=== PATIENT | male | born 1955 | race Caucasian/White ===

== ENCOUNTER 2025-09-19 11:19 | Outpatient (AMB) | payer MEDICARE, BC, SELFPAY ==
[2025-09-19 11:24] VITALS: BMI 31.0
--- NOTE | 2025-09-19 11:24 | A.PHYSOV ---
Vital Signs 09/19/25 11:24 Height 6 ft 1 in Weight 235 lb BMI 31.0 Intake Visit Reasons: back pain Intake Note: Patient is a69 year old here for back pain. 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 The patient was previously prescribed prednisone, which provided significant relief for approximately three weeks, but the pain has since returned. The pain is located in the low back, is worse on the right side, and radiates up to the right shoulder. The patient reports experiencing difficulty getting out of bed in the morning due to the pain. The patient denies any prior surgery on the low back. An x-ray was previously performed and only showed bone. The patient is currently using Tylenol for pain management. Patient reports 7/10 pain in the lower lumbar spine. He completed his 6 week physician directed home exercise plan focusing on his lumbar spine. He denies any major relief in supports recurrence of his symptoms. Pain Description - Location: The pain is located in the low back, worse on the right side. - Radiation: The pain radiates up to the right shoulder. - Activities of Daily Living: The patient reports difficulty getting out of bed in the morning. - Alleviating Factors: A previous course of prednisone provided significant relief for about three weeks. - Current Medications: The patient is using Tylenol. [facility] Social History Alcohol intake: current Alcohol intake frequency: other Comment: social Use of substances other than those prescribed or required for medical reasons: No Current occupational status: employed Review of Systems Narrative Review of Systems - Musculoskeletal: Reports low back pain that radiates to the right shoulder. - Neurological: Denies claustrophobia. Physical Exam Exam Exam: Physical Exam Lumbar Spine: Examination of his lumbar spine, there is no visible swelling or deformity. He is tender to the right lower lumbar facets. He is otherwise nontender. Full range of motion of the lumbar spine. He does have an increase in pain with facet loading. Special Tests: Lhermittes sign was negative Heel Toe walk is normal Left straight leg raise: Negative Right straight leg raise: Negative Special tests Efrain test is negative Ganslen's test is negative SI Joint compression test negative Wale test negative Piriformis stretch is negative Lower Extremities: Full range of motion bilateral lower extremities. No calf pain or edema. Neuro: Sensation: Intact to lower extremities bilaterally Strength L2 (Psoas): 5/5 on the left and 5/5 on the right. L3 (Quads): 5/5 on the left and 5/5 on the right. L4 (Ant tibialis): 5/5 on the left and 5/5 on the right. L5 (EHL) 5/5 on the left and 5/5 on the right. S1 (Gastroc): 5/5 on the left and 5/5 on the right. DTR L4: (Patellar) Left 2 Right 2 S1: (Achilles) Left 2 Right 2 Babinski Downgoing No pathologic clonus. No involuntary movement. Vital Signs: BMI result Body Mass Index 31.0 Assessment & Plan Assessment & Plan (1) Vertebrogenic low back pain: Code(s): M54.51 - Vertebrogenic low back pain Category: Medical (2) Lumbar spondylosis: Code(s): M47.816 - Spondylosis without myelopathy or radiculopathy, lumbar region Category: Medical Plan Pain Management - Analgesia: The patient is currently using Tylenol for pain. - Activities of Daily Living: The pain causes difficulty getting out of bed in the morning. - Affect: The patient expressed frustration about the recurring pain. - Prior Treatments: A course of prednisone provided significant relief for about three weeks before the pain returned. Plan Patient was informed and verbally consented to the use of an ambient scribe for clinic note documentation during this visit. 1. Low Back Pain The patient is a 69-year-old individual presenting with recurrent low back pain, worse on the right, with radiation to the right shoulder. A prior course of prednisone provided temporary relief for three weeks. An MRI of the lumbar spine is necessary to evaluate for underlying pathology such as disc issues, pinched nerves, or the severity of arthritis. Patient completed a 6 week physician directed home exercise plan focusing on his lumbar spine without relief of his symptoms. He finds that his symptoms limit his ability to perform his activities of daily living. An order for an MRI of the lumbar spine will be sent to [facility]. The office will obtain authorization from the patient's insurance. The patient will continue using Tylenol for pain. A follow-up visit will be scheduled after the MRI results are received to discuss the findings and further treatment options, which may include longer-acting steroid injections. Orders: Orders MR lumbar spine wo con Today M51.16 - Intervertebral disc disorders with radiculopathy, lumbar region Coding Level of Care Code Tele Est Pt Level 3 (55328) Diagnoses Vertebrogenic low back pain M54.51 Lumbar spondylosis M47.816
== END 2025-09-19 11:30 | disposition home or self-care (01) ==
LOC: HO.HPHYS 11:19
PROVIDERS: PCP Physician Assistant Medical; Visit Provider Physician Assistant
DX: M54.51 Vertebrogenic low back pain (principal); M47.816 Spondylosis without myelopathy or radiculopathy, lumbar region
CPT/HCPCS: 99213

== ENCOUNTER → 2025-09-19 11:19 | Outpatient (BNVA) | payer MEDICARE, BC, SELFPAY | PROVIDERS: PCP Physician Assistant Medical; Visit Provider Physician Assistant | DX: M54.51 Vertebrogenic low back pain (principal); M47.816 Spondylosis without myelopathy or radiculopathy, lumbar region | CPT/HCPCS: 99212 ==

== ENCOUNTER 2025-10-11 12:47 | Outpatient (AMB) | payer MEDICARE, BC, SELFPAY ==
--- OUTSIDE RECORDS SUMMARY | 2025-10-11 12:51 | XMS_ITS | Encounter Summary ---
Author Organization [facility] [place] [address] Care Team Providers Care Assistant Inventory Manager Name Role Phone Maximino Hewitt Primary Care Provider [phone] Encounter Details Date Type Department Care Team (Late st Contact Info) Description 08/14/2025 Results Follow-Up [facility] - [facility] [address] [facility] [address] [place] [address] Ernestina Poole PA [place] [phone] Social History Tobacco Use Types Packs/Day Years Used Date Smoking Tobacco: Former Cigarettes 2.5 10.8 0 1974 - 10/19/1985 Smokeless Tobacco: Never Alcohol Use Standard Drinks/Week Comments Yes 6 (1 standard drink = 0.6 oz pur e alcohol) Housing Instability Answer Date Recorde d Are you worried that in the next 2 months you may not have stable housing? No 10/02/2024 Food Access & Nutrition Answer Date Rec orded Do you have access to a vari ety of food including fruits and vegetables? Yes 10/02/2024 Access to Healthcare Answer Date Record ed Within the last 3 months, rahat porter many times did you visit the emergency department for your medical care? 0 10/02/2024 Health Literacy Answer Date Recorded How often do you need to hav e someone help you when you read instructions, pamphlets, or other written material from your doctor or pharmacy? Never 10/02/2024 Caregiver: How often do you need to have someone help you when you read instructions, pamphlets, or other written material from your doctor or pharmacy? Not on file 10/02/2024 Financial Risk Answer Date Recorded How hard is it for you to pa y for the very basics like food, housing, medical care, and air conditioning / heating? Not very hard 10/02/2024 Transportation Answer Date Recorded Has the lack of transportati on kept you from meetings, work, or from getting things needed for daily living? No Has the lack of transportati on kept you from medical appointments or from getting medications? No 10/02/2024 Social Isolation Answer Date Recorded How often do you feel lonely or isolated from th ose around you? Never 10/02/2024 Food Risk Answer Date Recorded Within the past 12 months we worried whether our food would run out before we got money to buy more. Never true 10/02/2024 Within the past 12 months th e food we bought just didn't last and we didn't have money to get more. Never true 10/02/2024 Dependent Care Answer Date Recorded Do you need help finding or paying for care for your loved ones. For example, child watch attendant or elderly care for an older adult? No 10/02/2024 Education Answer Date Recorded Do you think completing more education or training, like finishing a GED, going to college, or learning a trade, would be helpful for you? No 10/02/2024 Employment and Income Answer Date Recor ded During the last four weeks, have you been actively looking for work? No 10/02/2024 Living Situation Answer Date Recorded What is your living situation? Unrecognized valu e 10/02/2024 Sex and Gender Information Value Date Recorded Sex Assigned at Male 09/04/2024 7:31 AM EST Legal Sex Male 10:58 PM EST Gender Identity Male 09/04/2024 7:31 AM EST Sexual Orientation Straight 09/04/2024 7: 31 AM EST documented as of this encounter Plan of Treatment Upcoming Encounters Date Type Department Care Team (Late st Contact Info) Description 12/06/2025 10:10 AM EST Office Visit [facility] - [address] [facility] [address] [place] [phone] Ernestina Poole PA [address] [place] [address] [place] [phone] 02/23/2026 8:00 AM EDT Office Visit Adult Medicine [facility] [address] [place] [address] Maximino Hewitt PA [address] [place] [phone] Scheduled Procedures Name Priority Associated Diagnoses Date/Ti me ARTHROPLASTY SHOULDER TOTAL REVERSE APPROACH Arthritis of left glenohumeral joint documented as of this encounter Visit Diagnoses Not on filedocumented in this encounter Additional Health Concerns Assessment Noted Time PHQ-9 Depression Total Score: 0 01/26/20 25 11:03 AM EDT documented as of this encounter Care Teams Assistant Inventory Manager Relationship Specialty Start Date End Date Maximino Hewitt PA [address] [place] [id number] PCP - General Internal Medicine 09/05/24 documented as of this encounter
--- OUTSIDE RECORDS SUMMARY | 2025-10-11 12:51 | XMS_ITS | Encounter Summary ---
Author Organization [facility] [place] [address] Care Team Providers Care Education And Outreach Coordinator Name Role Phone Maximino Hewitt Primary Care Provider [phone] Encounter Details Date Type Department Care Team (Late st Contact Info) Description 08/25/2025 Results Follow-Up Adult Medicine [address] [address] Maximino Hewitt PA [address] [place] [phone] Social History Tobacco Use Types Packs/Day Years [...] Record ed Within the last 3 months, ho w many times did you visit the emergency [...] for your loved ones. For example, child advocate or elderly care for an older adult? [...] Description 12/06/2025 10:10 AM EST Office Visit [facility] - [address] [facility] [address] [place] [phone] Ernestina Poole PA [address] [place] [address] [place] [phone] 02/23/2026 8:00 AM EDT Office Visit Adult Medicine [facility] [address] [place] [address] Maximino Hewitt PA [address] [place] [phone] Scheduled Procedures Name Priority Associated Diagnoses Date/Ti me ARTHROPLASTY SHOULDER TOTAL REVERSE APPROACH Arthritis of left glenohumeral joint documented as of this encounter Visit Diagnoses Not on filedocumented in this encounter Additional Health Concerns Assessment Noted Time PHQ-9 Depression Total Score: 0 01/26/20 25 11:03 AM EDT documented as of this encounter Care Teams Education And Outreach Coordinator Relationship Specialty Start Date End Date Maximino Hewitt PA [address] [place] [id number] PCP - General Internal Medicine 09/05/24 documented as of this encounter
--- OUTSIDE RECORDS SUMMARY | 2025-10-11 12:52 | XMS_ITS | Clinical Summary ---
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 Active dilTIAZem (CARDIZEM) 30 mg immediate release tablet TAKE 1 TABLET BY MOUTH DAILY NEEDED FOR PALPITATIONS TO BE TAKEN NEEDED FOR AFIB PER DR WHALEN 12/15/19 24 Active dorzolamide (TRUSOPT) 2 % ophthalmic solution 2 drops. Active multivitamin tablet Take by mouth 1 (one) time each day. Active sildenafiL (VIAGRA) 100 mg tablet TAKE ONE-HALF (1/2) TABLET, THEN INCREASE TO 1 TABLET NEEDED 30 TO 60 MINUTES BEFORE INTERCOUSE (MAXIMUM OF 100 MG IN 24 HOURS) 09/19/20 21 Active cholecalcifer ol (VITAMIN D-3) 25 mcg (1,000 unit) tablet Take 1 tablet (1,000 Units total) by mouth 1 (one) time each day. Active furosemide (LASIX) 20 mg tablet Take 1 tablet (20 mg total) by mouth 1 (one) time each day if needed (leg swelling). 90 each 3 12/22/19 25 Active apixaban (Eliquis) 5 mg tablet TAKE 1 TABLET TWICE A DAY 180 tablet 3 05/23/20 25 Active chlorhexidine (PERIDEX) 0.12 % solution SOAK SURGERY AREA WITH 1/2 OZ TWO TIMES A DAY 06/29/20 25 Active magnesium, amino acid chelate, 133 mg tablet Take 1 tablet (133 mg total) by mouth 2 (two) times a day. Active potassium chloride (KLOR-CON M10) 10 mEq CR tablet Take 1 tablet (10 mEq total) by mouth 1 (one) time each day. Tablet may be swallowed whole (do not crush/chew/suck on) OR broken in half and each half swallowed separately OR dissolved (whole tablet) in ~4 ounces of water (allow ~2 minutes to dissolve, stir well and administer immediately). Active albuterol HFA (ProAir HFA) 90 mcg/actuation inhaler Inhale 2 puffs by mouth every 4 (four) hours if needed for wheezing or shortness of breath. 8.5 g 5 08/23/20 25 Active lisinopriL (PRINIVIL,ZES TRIL) 20 mg tablet TAKE 1 TABLET ONCE DAILY 90 tablet 1 09/27/20 25 Active tiZANidine (ZANAFLEX) 4 mg tablet Take 1 tablet (4 mg total) by mouth 3 (three) times a day if needed for muscle spasms. 30 tablet 04/03/20 25 025 Discontinued lisinopriL (PRINIVIL,ZES TRIL) 20 mg tablet Take 1 tablet (20 mg total) by mouth 1 (one) time each day. 90 tablet 1 05/08/20 25 025 Discontinued amiodarone (PACERONE) 200 mg tablet Take 1 tablet (200 mg total) by mouth 1 (one) time each day. 90 tablet 1 08/14/20 25 025 Discontinued(T herapy completed) Active Problems Problem Noted Date Diagnosed Date Arthritis of left glenohumeral joint 07/26/2025 Intermittent asthma 02/01/2025 Rotator cuff arthropathy of left shoulder 2024 SOB (shortness of breath) 03/18/2023 Aortic root dilatation 11/26/2020 Varicose veins of both lower extremities 021 PND (post-nasal drip) 11/16/2020 Class 1 obesity 03/31/2019 Chronic midline low back pain without sciatica 0 06/29/2018 ETOH abuse 06/29/2018 Obstructive sleep apnea 10/15/2017 Overview (12/21/2023): [facility] Home Polysomnogram: Date 08/11/2017; AHI 19, Unclassified apneas 0; Obstructive apneas 14; Central apneas 6; Mixed apneas 0; hypopneas 109; average oxygen saturation 92% (lowest 83% without saturations <88% for 5% or more of study) - Obstructive Sleep Apnea - moderate; mostly hypopneas; no sleep related hypoventilation by 2017 home polysomnogram. Paroxysmal atrial fibrillation 01/06/2017 Essential hypertension 12/29/2016 Detached retina 02/19/2016 Erectile dysfunction 08/21/2014 Diverticulosis 04/12/2012 Overview (12/21/2023): Colonoscopy incidental - 2007 Exercise-induced asthma 04/12/2012 Encounters Date Type Department Care Team Description 09/29/2025 8:54 AM EST - 09/29/2025 11:59 PM EST Hospital Encounter Radiology Department - [address] [address] Intervertebral disc disorders with radiculopathy, lumbar region Discharge Disposition: Home or Self Care 09/27/2025 11:10 AM EST Office Visit [facility] - [facility] [address] [facility] [address] [place] [address] Ernestina Poole PA Paroxysmal atrial fibrillation (CMS/HCC V24, CMS/HCC V28) (Primary Dx); Obstructive sleep apnea; Aortic root dilatation (CMS/HCC V24); Essential hypertension 08/25/2025 Results Follow-Up Adult Medicine [address] [phone] Maximino Hewitt PA 08/25/2025 Telephone Adult Medicine [address] [phone] Maximino Hewitt PA 08/24/2025 3:10 PM EST Lab Draw Station - [address] [address] Aortic root dilatation (CMS/HCC V24); Essential hypertension; Paroxysmal atrial fibrillation (CMS/HCC V24, CMS/HCC V28); Obstructive sleep apnea; Intermittent asthma, unspecified asthma severity, unspecified whether complicated; Encounter for screening for malignant neoplasm of prostate 08/23/2025 8:00 AM EST Office Visit Adult Medicine [address] [phone] Maximino Hewitt PA Essential hypertension (Primary Dx); Aortic root dilatation (CMS/HCC V24); Paroxysmal atrial fibrillation (CMS/HCC V24, CMS/HCC V28); Obstructive sleep apnea; Intermittent asthma, unspecified asthma severity, unspecified whether complicated; Encounter for screening for malignant neoplasm of prostate 08/14/2025 1:44 PM EDT Anesthesia Event [facility] [address] [place] [phone] Shane Jordan MD 08/14/2025 12:56 PM EDT - 08/14/2025 11:59 PM EDT Hospital Encounter [facility] [address] [place] [phone] Carlos Nguyen MD Paroxysmal atrial fibrillation (CMS/HCC V24, CMS/HCC V28) Discharge Disposition: Home or Self Care 08/14/2025 Results Follow-Up [facility] - [facility] [address] [facility] [address] [place] [phone] Ernestina Poole PA 08/07/2025 Telephone Orthopedic Surgery [facility] [address] [phone] Scarlet Bull [place] 08/07/2025 Telephone Orthopedic Surgery [facility] 250 175 [facility] [address] [place] [phone] Scarlet Bull [place] 08/04/2025 Telephone [facility] - [address] [place] [address] Minor Whalen MD 08/04/2025 Telephone [facility] - [address] [place] [address] Ernestina Poole PA 08/01/2025 10:30 AM EDT Clinical Support [facility] - [address] [place] [address] Paroxysmal atrial fibrillation (CMS/HCC V24, CMS/HCC V28) (Primary Dx) 08/01/2025 Telephone Orthopedic Surgery [facility] [address] [facility] [address] [place] [address] Scarlet Bull MA 07/27/2025 Telephone Orthopedic [facility] [address] [facility] [address] [place] [address] Scarlet Bull MA 07/24/2025 Results Follow-Up [facility] - [address] [place] [address] Ernestina Poole PA 07/20/2025 Telephone [facility] - [address] [place] [address] Minor Whalen MD 07/19/2025 3:10 PM EDT Office Visit [facility] - [address] [place] [address] Ernestina Poole PA Paroxysmal atrial fibrillation (CMS/HCC V24, CMS/HCC V28) (Primary Dx); SOB (shortness of breath); Obstructive sleep apnea; Aortic root dilatation (CMS/HCC V24); Essential hypertension 07/19/2025 6:41 AM EDT - 07/19/2025 11:59 PM EDT Hospital [facility] CT Scan [address] [place] [phone] Rotator cuff arthropathy of left shoulder; Arthritis of left glenohumeral joint Discharge Disposition: Home or Self Care 07/18/2025 Telephone [facility] - [address] [place] [address] Ernestina Poole PA from Last 3 Months Immunizations Immunization Administration Dates Next Due Influenza Quadravalent, 0.5m l (Fluad) 65yo and older 08/04/2022 Influenza Quadravalent, MDCK , 0.5ml, preservative free (Flucelvax) 6mo and older 06/26/2021,06/29/2018 Influenza trivalent, 0.5mL ( Fluzone High-dose) 65yo and older 09/08/2023,08/04/2022 Influenza, Unspecified 07/05/2020,07/02/2019,10/2015 Moderna (age 6mo & older) Bi valent, COVID-19, 0.5 mL or 0.25 mL dosage 08/04/2022 Moderna SARS-CoV-2 COVID-19, mRNA, LNP-S, preservative free 10/13/2021,10/28/2020 Pneumococcal conjugate 20 va lent (Prevnar 20, PCV 20) 2mo and older 09/10/2022 Pneumococcal polysaccharide 23 valent (Pneumovax 23) 2yo and older 02/26/2022 RSV, bivalent, protein subun it RSVpreF, 0.5mL, Preservative Free (Arexvy) 50yo and older 09/08/2023 TD, Adsorbed, Preservative Free 03/22/2019 Tdap Tetanus diptheria acell ular pertussis (Boostrix; Adacel) 7yo and older 01/19/2008 Zoster recombinant (Shingrix ) 19yo and older 12/13/2018,10/07/2018 Surgical History Surgery Date Site/Laterality Comments VASECTOMY PROCEDURE: OK VASECTOMY UNI/BI SPX W/POSTOP SEMEN EXAMS OTHER SURGICAL HISTORY PROCEDURE: HISTORY OTHER; COMMENT: rt foot surgry dr schaeffer OTHER SURGICAL HISTORY 2015 PROCEDURE: HISTORY OTHER; COMMENT: detached retina dr martínez rt eye COLONOSCOPY 05/30/2008 PROCEDURE: HISTORICAL COLONOSCOPY; COMMENT: Up to cecum, mild sigmoid diverticulosis, otherwise normal colon exam COLONOSCOPY 06/22/2018 PROCEDURE: HISTORICAL COLONOSCOPY; COMMENT: no polyps. OTHER SURGICAL HISTORY 06/30/2017 PROCEDURE: OK ABLATE L/R ATRIAL FIBRIL W/ISOLATED PULM VEIN; COMMENT: for atrial fibrillation, reverted to sinus rhythm after 72 hrs ABLATION DONE [place] 08/28/2025 [place] [facility] [place] INDICATIONS:Atrial Fibrillation. Medical History Medical History Date Comments Obesity, unspecified 01/13/2006 DX:Obesity, unspecified Diverticulosis 04/12/2012 DX:Diverticulosi s Exercise-induced asthma 04/12/2012 DX:Exerc ise-induced asthma Erectile dysfunction 08/21/2014 DX:Erectile dysfunction A-fib ([facility]/HCC V24, CMS/HCC V28) DX:A-fib ([facility]) Mild ascending aorta dilatio n ([facility] V24) DX:Mild ascending aorta dila tion ([facility]); COMMENT: 4.2cm Family history of prostate cancer 01/27/2018 DX:Family history of prostate cancer Hypertension Family History Medical History Relation Name Comments Prostate cancer Brother 1 Prostate cancer Brother 2 Prostate cancer Father Other: eye problems Mother Stroke Mother 96 Relation Name Status Comments Brother 1 Alive prostate cancer Brother 2 Alive Healthy Father (Age 76) alzheimers , prostate CA Mother strokes, mac de generation, skin cancer, HTN Sister Alive Skin CA Social History Tobacco Use Types Packs/Day Years Used Date Smoking Tobacco: Former Cigarettes 2.5 10.8 0 1974 - 10/19/1985 Smokeless Tobacco: Never Tobacco Cessation:Counseling Given: Not Answered Alcohol Use Standard Drinks/Week Comments Yes 6 [...] for your loved ones. For example, child nutrition director or elderly care for an older adult? [...] Orientation Straight 09/04/2024 7: 31 AM EST Last Filed Vital Signs Vital Sign Reading Time Taken Comments Blood Pressure 142/80 09/27/2025 11:13 AM EST Pulse 60 09/27/2025 11:13 AM EST Temperature 36.4 C (97.5 F) 08/23/2025 7:59 AM EST Respiratory Rate 15 08/23/2025 7:59 AM EST Oxygen Saturation 99% 09/27/2025 11:13 AM EST Inhaled Oxygen Concentration - - Weight 115 kg (253 lb) 09/27/2025 11:13 AM EST Height 185.4 cm (6' 1 ) 09/27/2025 11:13 AM EST Body Mass Index 33.38 09/27/2025 11:13 AM EST Plan of Treatment Upcoming Encounters Date Type Department Care Team (Late st Contact Info) Description 12/06/2025 10:10 AM EST Office Visit [facility] - [facility] [address] [facility] [address] [place] [phone] Ernestina Poole PA [address] [place] [address] Dr [address] [place] [phone] 02/23/2026 8:00 AM EDT Office Visit Adult Medicine [address] [phone] Maximino Hewitt PA [address] [place] [phone] Scheduled Procedures Name Priority Associated Diagnoses Date/Ti me ARTHROPLASTY SHOULDER TOTAL REVERSE APPROACH Arthritis of left glenohumeral joint Health Maintenance Due Date Last Done Comments Hepatitis A Vaccines (1 of 2 - Risk 2-dose series) 12/28/1975 Medicare Annual Wellness Visit 09/27/2022 Social Influencers of Health Screening 10/02/2025 10/02/2024 Falls Risk Assessment 02/01/2026 02/01/2025, 023 COVID-19 Vaccine ( season) 2026 08/04/2025, 06/26/2024, 09/08/2023, Additional history exists Hypertension/CHF/CAD Annual BMP Blood Test 08/24/2026 08/24/2025, 08/08/2025, 01/25/2025, Additional history exists Colorectal Cancer Screening: Colonoscopy 06/22/2028 06/22/2018 DTaP,Tdap,and Td Vaccines (3 - Td or Tdap) 03/22/2029 03/22/2019, 01/19/2008 Cholesterol Screening (Lipid Panel) 08/24/2030 08/24/2025, 01/25/2025, 08/22/2024, Additional history exists Zoster Vaccines Completed 12/13/2018, 10/07/2018 Pneumococcal Vaccine: 50+ Years Completed 09/10/2022, 02/26/2022 Abdominal Aortic Aneurysm (AAA) Screen Completed 04/15/2023, 04/15/2023 RSV Immunization Adult Patients Completed 09/08/2023 Depression Screening Completed 01/25/2025 Hepatitis C Screening Completed 02/01/2025, 012 Influenza Vaccine Completed 08/04/2025, , 08/04/2022, Additional history exists HIB Vaccines Aged Out No longer eligi ble based on patient's age to complete this topic HPV Vaccines Aged Out No longer eligi ble based on patient's age to complete this topic Hepatitis B Vaccines Aged Out No long er eligible based on patient's age to complete this topic IPV Vaccines Aged Out No longer eligi ble based on patient's age to complete this topic MMR Vaccines Aged Out No longer eligi ble based on patient's age to complete this topic Meningococcal ACWY Vaccine Aged Out N o longer eligible based on patient's age to complete this topic Meningococcal B Vaccine Aged Out No l onger eligible based on patient's age to complete this topic RSV Immunization Patients Under 20 months Aged Out No longer eligible based on patient's age to complete this topic Varicella Vaccines Aged Out No longer eligible based on patient's age to complete this topic Procedures Procedure Name Priority Date/Time Associated Diagnosis Comments MR LUMBAR SPINE WO CONTRAST STAT 09/29/2025 9:42 AM EST Intervertebral disc disorders with radiculopathy, lumbar region ECG 12-LEAD Routine 09/27/2025 11:35 AM EST Paroxysmal atrial fibrillation (CMS/HCC V24, CMS/HCC V28) EXTERNAL EP 08/28/2025 CBC WITH AUTO DIFFERENTIAL Routine 08/24/2025 3:10 PM EST Aortic root dilatation (CMS/HCC V24) Essential hypertension Paroxysmal atrial fibrillation (CMS/HCC V24, CMS/HCC V28) Obstructive sleep apnea Intermittent asthma, unspecified asthma severity, unspecified whether complicated FOLATE Routine 08/24/2025 3:10 PM EST Aortic root dilatation (CMS/HCC V24) Essential hypertension Paroxysmal atrial fibrillation (CMS/HCC V24, CMS/HCC V28) Obstructive sleep apnea Intermittent asthma, unspecified asthma severity, unspecified whether complicated VITAMIN B12 Routine 08/24/2025 3:10 PM EST Aortic root dilatation (CMS/HCC V24) Essential hypertension Paroxysmal atrial fibrillation (CMS/HCC V24, CMS/HCC V28) Obstructive sleep apnea Intermittent asthma, unspecified asthma severity, unspecified whether complicated FERRITIN Routine 08/24/2025 3:10 PM EST Aortic root dilatation (CMS/HCC V24) Essential hypertension Paroxysmal atrial fibrillation (CMS/HCC V24, CMS/HCC V28) Obstructive sleep apnea Intermittent asthma, unspecified asthma severity, unspecified whether complicated IRON AND TIBC Routine 08/24/2025 3:10 PM EST Aortic root dilatation (CMS/HCC V24) Essential hypertension Paroxysmal atrial fibrillation (CMS/HCC V24, CMS/HCC V28) Obstructive sleep apnea Intermittent asthma, unspecified asthma severity, unspecified whether complicated PROSTATE SPECIFIC ANTIGEN SCREEN Routine 08/24/2025 3:10 PM EST Aortic root dilatation (CMS/HCC V24) Essential hypertension Paroxysmal atrial fibrillation (CMS/HCC V24, CMS/HCC V28) Obstructive sleep apnea Intermittent asthma, unspecified asthma severity, unspecified whether complicated Encounter for screening for malignant neoplasm of prostate CBC AND DIFFERENTIAL Routine 08/24/2025 3:10 PM EST Aortic root dilatation (CMS/HCC V24) Essential hypertension Paroxysmal atrial fibrillation (CMS/HCC V24, CMS/HCC V28) Obstructive sleep apnea Intermittent asthma, unspecified asthma severity, unspecified whether complicated COMPREHENSIVE METABOLIC PANEL Routine 08/24/2025 3:10 PM EST Aortic root dilatation (CMS/HCC V24) Essential hypertension Paroxysmal atrial fibrillation (CMS/HCC V24, CMS/HCC V28) Obstructive sleep apnea Intermittent asthma, unspecified asthma severity, unspecified whether complicated LIPID PANEL WITH REFLEX TO DIRECT LDL Routine 08/24/2025 3:10 PM EST Aortic root dilatation (CMS/HCC V24) Essential hypertension Paroxysmal atrial fibrillation (CMS/HCC V24, CMS/HCC V28) Obstructive sleep apnea Intermittent asthma, unspecified asthma severity, unspecified whether complicated PROCEDURAL ECG STAT 08/14/2025 2:14 PM EDT CARDIOVERSION EXTERNAL Routine 2:04 PM EDT Paroxysmal atrial fibrillation (CMS/HCC V24, CMS/HCC V28) BASIC METABOLIC PANEL Routine 08/08/2025 11:18 AM EDT Paroxysmal atrial fibrillation (CMS/HCC V24, CMS/HCC V28) PROTHROMBIN TIME WITH INR Routine 08/08/2025 11:18 AM EDT Paroxysmal atrial fibrillation (CMS/HCC V24, CMS/HCC V28) COMPLETE BLOOD COUNT Routine 08/08/2025 11:18 AM EDT Paroxysmal atrial fibrillation (CMS/HCC V24, CMS/HCC V28) ECG 12-LEAD Routine 08/01/2025 10:28 AM EDT Paroxysmal atrial fibrillation (CMS/HCC V24, CMS/HCC V28) ALANINE AMINOTRANSFERASE Routine 025 12:53 PM EDT Paroxysmal atrial fibrillation (CMS/HCC V24, CMS/HCC V28) SOB (shortness of breath) ASPARTATE AMINOTRANSFERASE Routine 07/20/2025 12:53 PM EDT Paroxysmal atrial fibrillation (CMS/HCC V24, CMS/HCC V28) SOB (shortness of breath) THYROID STIMULATING HORMONE WITH REFLEX TO FREE T4 AND FREE T3 Routine 07/20/2025 12:53 PM EDT Paroxysmal atrial fibrillation (CMS/HCC V24, CMS/HCC V28) SOB (shortness of breath) CT UPPER EXTREMITY WO CONTRAST LEFT Routine 07/19/2025 7:12 AM EDT Rotator cuff arthropathy of left shoulder Arthritis of left glenohumeral joint HEPATITIS C ANTIBODY Routine 02/01/2025 2:46 PM EDT Screen for STD (sexually transmitted disease) ABDOMINAL AORTIC ANEURYSM SCRREN Routine 04/15/2023 COLONOSCOPY Routine 06/22/2018 from Last 3 Months or Most Recently Relevant to Health Maintenance Results * MR Lumbar Spine wo Contrast (09/29/2025 9:42 AM EST) Anatomical Region Laterality Modality L-spine, Spine Magnetic Resonan ce 09/29/2025 3:34 PM EST Impressions 09/29/2025 4:26 PM EST Multilevel degenerative changes, greatest at L5-S1. -------- FINAL REPORT -------- Dictated By: Avril Wyman Dictated Date: 09/29/2025 15:34 ET Assigned Physician: Avril Wyman Reviewed and Electronically Signed By: Avril Wyman Signed Date: 09/29/2025 16:26 ET Workstation ID: [id number] Transcribed By: Self Edit Transcribed Date: 09/29/2025 16:00 ET Narrative 09/29/2025 4:26 PM EST EXAM: Lumbar spine MRI HISTORY: Back pain. Back pain radiates to right shoulder. COMPARISON: None CORRELATION: Lumbar spine radiography 08/03/2024 TECHNIQUE: Exam performed on a 1.5 Jaylene high-field MRI scanner. Multiplanar imaging performed without contrast. FINDINGS: Conus medullaris is not visualized and therefore terminates above the T12 level. No compression deformities. Mixed fatty and edematous degenerative endplate signal changes at L5-S1. Mild bone marrow edema associated with endplate osteophytes at several levels. L1-L2: Disc desiccation without significant disc bulging or evidence of a disc protrusion or extrusion. No significant neural foraminal narrowing or spinal canal stenosis. L2-L3: Mild to moderate loss of disc height with areas of hyperintense STIR signal and some T1 hyperintense signal within the disc which is probably on a degenerative basis. Disc bulging which is more prominent in the foraminal regions. Mild bilateral facet arthropathy. No significant neural foraminal narrowing or spinal canal stenosis. L3-L4: Disc desiccation, disc bulging which contacts the descending nerve roots, and tiny annular tears in the right posterolateral disc. Mild to moderate facet arthropathy. No significant neural foraminal narrowing. Mild narrowing of the spinal canal. L4-L5: Disc desiccation and moderate loss of disc height. Disc bulging which is asymmetrically prominent to the right. Mild to moderate facet arthropathy. Minimal retrolisthesis of L4 on L5. No significant neural foraminal narrowing or spinal canal stenosis. L5-S1: Disc desiccation and moderate loss of disc height. Diffuse disc bulging. Mild to moderate right and mild left facet arthropathy. Moderate bilateral subarticular neural foraminal narrowing, greater on the right where facet disease contacts the exiting nerve root without definite compression. No significant spinal canal stenosis. Procedure Note Avril Wyman MD - 09/29/2025 EXAM: Lumbar spine MRI HISTORY: Back pain. Back pain radiates to right shoulder. COMPARISON: None CORRELATION: Lumbar spine radiography 08/03/2024 TECHNIQUE: Exam performed on a 1.5 Jaylene high-field MRI scanner.Multiplanar imaging performed without contrast. FINDINGS: Conus medullaris is not visualized and therefore terminates above the [id number]. No compression deformities. Mixed fatty and edematous degenerativeendplate signal changes at L5-S1. Mild bone marrow edema associated withendplate osteophytes at several levels. L1-L2: Disc desiccation without significant disc bulging or evidence of adisc protrusion or extrusion. No significant neural foraminal narrowing orspinal canal stenosis. L2-L3: Mild to moderate loss of disc height with areas of hyperintenseSTIR signal and some T1 hyperintense signal within the disc which isprobably on a degenerative basis. Disc bulging which is more prominent inthe foraminal regions. Mild bilateral facet arthropathy. No significantneural foraminal narrowing or spinal canal stenosis. L3-L4: Disc desiccation, disc bulging which contacts the descending nerveroots, and tiny annular tears in the right posterolateral disc. Mild tomoderate facet arthropathy. No significant neural foraminal narrowing.Mild narrowing of the spinal canal. L4-L5: Disc desiccation and moderate loss of disc height. Disc bulgingwhich is asymmetrically prominent to the right. Mild to moderate facetarthropathy. Minimal retrolisthesis of L4 on L5. No significant neuralforaminal narrowing or spinal canal stenosis. L5-S1: Disc desiccation and moderate loss of disc height. Diffuse discbulging. Mild to moderate right and mild left facet arthropathy. Moderatebilateral subarticular neural foraminal narrowing, greater on the rightwhere facet disease contacts the exiting nerve root without definitecompression. No significant spinal canal stenosis. IMPRESSION: Multilevel degenerative changes, greatest at L5-S1. -------- FINAL REPORT -------- Dictated By: Avril Wyman Dictated Date: 09/29/2025 15:34 ET Assigned Physician: Avril Wyman Reviewed and Electronically Signed By: Avril Wyman Signed Date: 09/29/2025 16:26 ET Workstation ID: [id number] Transcribed By: Self Edit Transcribed Date: 09/29/2025 16:00 ET Ravinder DEMPSEY IMG MRI PROCEDURES Final Resul t * ECG 12 lead (09/27/2025 11:35 AM EST) Only the most recent of2 resultswithin the time period is included. Ventricular Rate ECG 60 BPM GEMUSE Atrial Rate 60 BPM GEMUSE P-R Interval 208 ms GEMUSE QRS Duration 106 ms GEMUSE Q-T Interval 440 ms GEMUSE QTc 440 ms GEMUSE P Wave [place] 71 degrees GEMUSE R [place] 88 degrees GEMUSE T [place] 42 degrees GEMUSE ECG Interpretation Normal sinus rhythm Normal ECG When compared with ECG of 14-AUG-2025 14:14, Questionabl e change in QRS axis GEMUSE 09/27/2025 11:1 4 AM EST us Ernestina DEMPSEY ECG ORDERABLES Final Result GEMUSE * External EP (08/28/2025) Anatomical Region Laterality Modality Cardiac Electrop hysiology Provider [facility] CV ELECTROPHYSIOLOGY PRO CEDURES Final Result * (ABNORMAL) Prostate specific antigen screen (08/24/2025 3:10 PM EST) PSA 4.34(H) 0.00 - 4.00 ng/mL LAB CHEMISTRY METHOD 08/24/2025 6:47 PM [facility] Blood Venous blood specimen / Unknown Venipuncture / Unknown 08/24/2025 3:10 PM EST 08/24/2025 3:10 PM EST [facility] - 08/24/2025 6:47 PM EST The Siemens Advia ThirdMotionaur Chemiluminescent Immunoassay is used. Results obtained with different assay methods or kits cannot be used interchangeably. Results cannot be interpreted as absolute evidence of the presence or absence of malignant disease. Maximino DEMPSEY LAB BLOOD ORDERABLES Margie chatman Result [facility] [address] [place] [address], * (ABNORMAL) Lipid panel with reflex to direct LDL (08/24/2025 3:10 PM EST) Pathologist [facility] Cholesterol 212(H) 0 - 200 mg/dL LAB CHEMISTRY METHOD 08/24/2025 6:26 PM [facility] Triglycerides 45 0 - 150 mg/dL LAB CHEMISTRY METHOD 08/24/2025 6:26 PM [facility] HDL 106 >=40 mg/dL LAB CHEMISTRY METHOD 08/24/2025 6:26 PM [facility] LDL Calculated 97 0 - 100 mg/dL LAB CHEMISTRY METHOD 08/24/2025 6:26 PM [facility] Comment:Estimated LDL Calcul ated using equation: Total cholesterol - HDL cholesterol - (Triglycerides/5) VLDL Cholesterol Cholo 9 mg/dL LAB CHEMISTRY METHOD 08/24/2025 6:26 PM [facility] Non HDL Chol. (LDL+VLDL) 106 <145 mg/dL LAB CHEMISTRY METHOD 08/24/2025 6:26 PM [facility] Chol/HDL Ratio 2.0 0.0 - 4.4 LAB CHEMISTRY METHOD 08/24/2025 6:26 PM [facility] Blood Venous blood specimen / Unknown Venipuncture / Unknown 08/24/2025 3:10 PM EST 08/24/2025 3:10 PM EST Maximino DEMPSEY LAB BLOOD ORDERABLES Margie l Result [facility] [address] [place] [address], * (ABNORMAL) CBC auto differential (08/24/2025 3:10 PM EST) WBC 8.5 4.8 - 10.8 K/mcL LAB HEMETOLOGY METHOD 08/24/2025 6:00 PM [facility] RBC 4.30(L) 4.50 - 5.50 M/mcL LAB HEMETOLOGY METHOD 08/24/2025 6:00 PM [facility] Hemoglobin 14.1 13.5 - 17.5 g/dL LAB HEMETOLOGY METHOD 08/24/2025 6:00 PM [facility] Hematocrit 41.9(L) 42.0 - 54.0 % LAB HEMETOLOGY METHOD 08/24/2025 6:00 PM [facility] MCV 98.4(H) 79.0 - 98.0 FL LAB HEMETOLOGY METHOD 08/24/2025 6:00 PM [facility] MCH 33.1(H) 27.0 - 32.0 pcg LAB HEMETOLOGY METHOD 08/24/2025 6:00 PM [facility] MCHC 33.7 32.0 - 37.0 g/dL LAB HEMETOLOGY METHOD 08/24/2025 6:00 PM [facility] RDW 13.4 11.0 - 15.0 % LAB HEMETOLOGY METHOD 08/24/2025 6:00 PM [facility] Platelets 237 130 - 400 K/mcL LAB HEMETOLOGY METHOD 08/24/2025 6:00 PM [facility] MPV 10.3 7.0 - 11.0 FL LAB HEMETOLOGY METHOD 08/24/2025 6:00 PM [facility] NRBC 0.0 <1.0 % LAB HEMETOLOGY METHOD 08/24/2025 6:00 PM [facility] NRBC Absolute 0.00 <0.10 K/mcL LAB HEMETOLOGY METHOD 08/24/2025 6:00 PM [facility] Neutrophils Relative 78.0 % LAB HEMETOLOGY METHOD 08/24/2025 6:00 PM [facility] Lymphocytes Relative 11.8 % LAB HEMETOLOGY METHOD 08/24/2025 6:00 PM [facility] Monocytes Relative 9.0 % LAB HEMETOLOGY METHOD 08/24/2025 6:00 PM [facility] Eosinophils Relative 0.1 % LAB HEMETOLOGY METHOD 08/24/2025 6:00 PM [facility] Basophils Relative 0.2 % LAB HEMETOLOGY METHOD 08/24/2025 6:00 PM [facility] Immature Granulocytes Relative 0.9 % LAB HEMETOLOGY METHOD 08/24/2025 6:00 PM [facility] Neutrophils Absolute 6.59 1.50 - 7.00 K/mcL LAB HEMETOLOGY METHOD 08/24/2025 6:00 PM [facility] Lymphocytes Absolute 1.00 1.00 - 5.00 K/mcL LAB HEMETOLOGY METHOD 08/24/2025 6:00 PM [facility] Monocytes Absolute 0.76 0.20 - 1.00 K/mcL LAB HEMETOLOGY METHOD 08/24/2025 6:00 PM EST [facility] Eosinophils Absolute 0.01 0.00 - 0.50 K/[facility] LAB HEMETOLOGY METHOD 08/24/2025 6:00 PM EST [facility] Basophils Absolute 0.02 0.00 - 0.20 K/[facility] LAB HEMETOLOGY METHOD 08/24/2025 6:00 PM EST [facility] Immature Granulocytes Absolute 0.08(H) 0.00 - 0.03 K/[facility] LAB HEMETOLOGY METHOD 08/24/2025 6:00 PM [facility] Blood Venous blood specimen / Unknown Venipuncture / Unknown 08/24/2025 3:10 PM EST 08/24/2025 3:10 PM EST Maximino DEMPSEY LAB BLOOD ORDERABLES Margie l Result Performing Organization Address City/[facility]/ZIP Co de Phone Number [facility] [address] [place] [address], [place] [phone] * Iron and TIBC (08/24/2025 3:10 PM EST) Iron 131 50 - 160 mcg/dL LAB CHEMISTRY METHOD 08/24/2025 6:24 PM EST [facility] TIBC 275 250 - 450 mcg/dL LAB CHEMISTRY METHOD 08/24/2025 6:24 PM EST [facility] Iron Saturation 48 20 - 50 % LAB CHEMISTRY METHOD 08/24/2025 6:24 PM EST [facility] Blood Venous blood specimen / Unknown Venipuncture / Unknown 08/24/2025 3:10 PM EST 08/24/2025 3:10 PM EST Maximino DEMPSEY LAB BLOOD ORDERABLES Margie l Result [facility] [address] [place] [address], [place] [phone] * Folate (08/24/2025 3:10 PM EST) [facility] Folate 15.6 2.8 - 17.0 ng/ml LAB CHEMISTRY METHOD 08/24/2025 6:24 PM EST [facility] Blood Venous blood specimen / Unknown Venipuncture / Unknown 08/24/2025 3:10 PM EST 08/24/2025 3:10 PM EST Maximino DEMPSEY LAB BLOOD ORDERABLES Margie l Result Performing Organization Address [facility]/ZIP Co de Phone Number [facility] [address] [place] [address], [place] [phone] * Ferritin (08/24/2025 3:10 PM EST) [facility] Ferritin 253 26 - 388 ng/mL LAB CHEMISTRY METHOD 08/24/2025 6:24 PM EST [facility] Blood Venous blood specimen / Unknown Venipuncture / Unknown 08/24/2025 3:10 PM EST 08/24/2025 3:10 PM EST Maximino DEMPSEY LAB BLOOD ORDERABLES Margie l Result Performing Organization Address City/[facility]/ZIP Co de Phone Number [facility] [address] [place] [address], [place] [phone] * Vitamin B12 (08/24/2025 3:10 PM EST) [facility] Vitamin B-12 409 250 - 900 pcg/mL LAB CHEMISTRY METHOD 08/24/2025 6:24 PM EST [facility] Blood Venous blood specimen / Unknown Venipuncture / Unknown 08/24/2025 3:10 PM EST 08/24/2025 3:10 PM EST us Maximino DEMPSEY LAB BLOOD ORDERABLES Margie l Result [facility] [address] [place] [address], * (ABNORMAL) Comprehensive metabolic panel (08/24/2025 3:10 PM EST) Sodium 133 133 - 145 mmol/L LAB CHEMISTRY METHOD 08/24/2025 6:24 PM [facility] Potassium 4.5 3.5 - 5.5 mmol/L LAB CHEMISTRY METHOD 08/24/2025 6:24 PM [facility] Chloride 100 96 - 110 mmol/L LAB CHEMISTRY METHOD 08/24/2025 6:24 PM [facility] CO2 29 21 - 32 mmol/L LAB CHEMISTRY METHOD 08/24/2025 6:24 PM [facility] Anion Gap 4 3 - 11 LAB CHEMISTRY METHOD 08/24/2025 6:24 PM [facility] Glucose 103(H) 70 - 100 mg/dL LAB CHEMISTRY METHOD 08/24/2025 6:24 PM [facility] BUN 23 5 - 25 mg/dL LAB CHEMISTRY METHOD 08/24/2025 6:24 PM [facility] Creatinine 1.12 0.70 - 1.30 mg/dL LAB CHEMISTRY METHOD 08/24/2025 6:24 PM [facility] eGFR 72 >=60 mL/min/1. 73m2 LAB CHEMISTRY METHOD 08/24/2025 6:24 PM [facility] Comment:Calculation based on the Chronic Kidney Disease Epidemiology Collaboration (CKD-EPI) equation refit without adjustment for race. BUN/Creatinine Ratio 20.5 LAB CHEMISTRY METHOD 08/24/2025 6:24 PM [facility] Calcium 8.9 8.5 - 10.5 mg/dL LAB CHEMISTRY METHOD 08/24/2025 6:24 PM [facility] AST (SGOT) 20 10 - 42 unit/L LAB CHEMISTRY METHOD 08/24/2025 6:24 PM [facility] ALT (SGPT) 38 10 - 60 unit/L LAB CHEMISTRY METHOD 08/24/2025 6:24 PM [facility] Alkaline Phosphatase 51 42 - 121 unit/L LAB CHEMISTRY METHOD 08/24/2025 6:24 PM [facility] Total Protein 6.5 6.0 - 8.0 g/dL LAB CHEMISTRY METHOD 08/24/2025 6:24 PM [facility] Albumin 3.6 3.2 - 5.0 g/dL LAB CHEMISTRY METHOD 08/24/2025 6:24 PM [facility] Total Bilirubin 1.1 0.0 - 1.4 mg/dL LAB CHEMISTRY METHOD 08/24/2025 6:24 PM [facility] Blood Venous blood specimen / Unknown Venipuncture / Unknown 08/24/2025 3:10 PM EST 08/24/2025 3:10 PM EST Maximino DEMPSEY LAB BLOOD ORDERABLES Margie l Result [facility] [address] [place] [address], * ECG 12 lead - Procedural (No Charge) (08/14/2025 2:14 PM EDT) Ventricular Rate ECG 64 BPM GEMUSE Atrial Rate 64 BPM GEMUSE P-R Interval 204 ms GEMUSE QRS Duration 110 ms GEMUSE Q-T Interval 432 ms GEMUSE QTc 445 ms GEMUSE P Wave [place] 78 degrees GEMUSE R [place] 0 degrees GEMUSE T [place] 33 degrees GEMUSE ECG Interpretation Normal sinus rhythm Normal ECG When compared with ECG of 01-AUG-2025 10:28, (unconfirmed) Sinus rhythm has replaced Atrial fibrillation Questionable change in QRS axis Confirmed by Renata SWANSON JAMES ([id number]) on 08/14/2025 4:24:39 PM GEMUSE 08/14/2025 2:14 PM EDT 08/14/2025 4:24 PM EDT Carlos Nguyen MD ECG ORDERABLES Final Result GEMUSE * Cardioversion external (08/14/2025 2:04 PM EDT) Anatomical Region Laterality Modality X-Ray Angiograph y Narrative 08/15/2025 3:52 PM EDT Successful electrical cardioversion to sinus rhythm Successful electrical cardioversion Ernestina DEMPSEY CV CARDIAC SERVICES PROCEDURES F inal Result * Prothrombin time with INR (08/08/2025 11:18 AM EDT) Protime 11.9 10.6 - 13.9 sec LAB COAGULATION METHOD 08/08/2025 12:49 PM EDT [facility] INR 1.0 LAB COAGULATION METHOD 08/08/2025 12:49 PM EDT [facility] Blood Venous blood specimen / Unknown Venipuncture / Unknown 08/08/2025 11:18 AM EDT 08/08/2025 11:18 AM EDT Ernestina DEMPSEY LAB BLOOD ORDERABLES Final Resul t [facility] [address] [place] [address], [place] [phone] * (ABNORMAL) Complete blood count (08/08/2025 11:18 AM EDT) WBC 6.0 4.8 - 10.8 K/mcL LAB HEMETOLOGY METHOD 08/08/2025 12:52 PM EDT [facility] RBC 4.20(L) 4.50 - 5.50 M/mcL LAB HEMETOLOGY METHOD 08/08/2025 12:[facility] Hemoglobin 13.8 13.5 - 17.5 g/dL LAB HEMETOLOGY METHOD 08/08/2025 12:52 PM [facility] Hematocrit 40.7(L) 42.0 - 54.0 % LAB HEMETOLOGY METHOD 08/08/2025 12:52 PM [facility] MCV 97.1 79.0 - 98.0 FL LAB HEMETOLOGY METHOD 08/08/2025 12:52 PM [facility] MCH 32.9(H) 27.0 - 32.0 pcg LAB HEMETOLOGY METHOD 08/08/2025 12:52 PM [facility] MCHC 33.9 32.0 - 37.0 g/dL LAB HEMETOLOGY METHOD 08/08/2025 12:52 PM [facility] RDW 13.0 11.0 - 15.0 % LAB HEMETOLOGY METHOD 08/08/2025 12:52 PM [facility] Platelets 173 130 - 400 K/mcL LAB HEMETOLOGY METHOD 08/08/2025 12:52 PM [facility] MPV 10.3 7.0 - 11.0 FL LAB HEMETOLOGY METHOD 08/08/2025 12:52 PM [facility] NRBC 0.0 <1.0 % LAB HEMETOLOGY METHOD 08/08/2025 12:52 PM [facility] NRBC Absolute 0.00 <0.10 K/mcL LAB HEMETOLOGY METHOD 08/08/2025 12:52 PM [facility] Blood Venous blood specimen / Unknown Venipuncture / Unknown 08/08/2025 11:18 AM EDT 08/08/2025 11:18 AM EDT us Ernestina DEMPSEY LAB BLOOD ORDERABLES Final Resul t [facility] [address] [place] [address], * Basic metabolic panel (08/08/2025 11:18 AM EDT) Sodium 136 133 - 145 mmol/L LAB CHEMISTRY METHOD 08/08/2025 4:10 PM T [facility] Potassium 4.4 3.5 - 5.5 mmol/L LAB CHEMISTRY METHOD 08/08/2025 4:10 PM [facility] Chloride 102 96 - 110 mmol/L LAB CHEMISTRY METHOD 08/08/2025 4:10 PM [facility] CO2 28 21 - 32 mmol/L LAB CHEMISTRY METHOD 08/08/2025 4:10 PM [facility] Anion Gap 6 3 - 11 LAB CHEMISTRY METHOD 08/08/2025 4:10 PM [facility] Glucose 87 70 - 100 mg/dL LAB CHEMISTRY METHOD 08/08/2025 4:10 PM [facility] BUN 16 5 - 25 mg/dL LAB CHEMISTRY METHOD 08/08/2025 4:10 PM [facility] Creatinine 1.18 0.70 - 1.30 mg/dL LAB CHEMISTRY METHOD 08/08/2025 4:10 PM [facility] eGFR 67 >=60 mL/min/1. 73m2 LAB CHEMISTRY METHOD 08/08/2025 4:10 PM [facility] Comment:Calculation based on the Chronic Kidney Disease Epidemiology Collaboration (CKD-EPI) equation refit without adjustment for race. BUN/Creatinine Ratio 13.6 LAB CHEMISTRY METHOD 08/08/2025 4:10 PM [facility] Calcium 9.2 8.5 - 10.5 mg/dL LAB CHEMISTRY METHOD 08/08/2025 4:10 PM EDT [facility] Blood Venous blood specimen / Unknown Venipuncture / Unknown 08/08/2025 11:18 AM EDT 08/08/2025 11:18 AM EDT us Ernestina DEMPSEY LAB BLOOD ORDERABLES Final Resul t Performing Organization Address City/[facility] Co de Phone Number [facility] [address] [place] [address], [place] [phone] * Thyroid stimulating hormone with reflex to free t4 and free t3 (07/20/2025 12:53 PM EDT) TSH 1.47 0.40 - 4.00 mcIU/mL LAB CHEMISTRY METHOD 07/20/2025 3:04 PM EDT [facility] Blood Venous blood specimen / Unknown Venipuncture / Unknown 07/20/2025 12:53 PM EDT 07/20/2025 12:53 PM EDT us Ernestina DEMPSEY LAB BLOOD ORDERABLES Final Resul t Performing Organization Address [facility] de Phone Number [facility] [address] [place] [address], [place] [phone] * Alanine aminotransferase (07/20/2025 12:53 PM EDT) ALT (SGPT) 55 10 - 60 unit/L LAB CHEMISTRY METHOD 07/20/2025 2:24 PM EDT [facility] Blood Venous blood specimen / Unknown Venipuncture / Unknown 07/20/2025 12:53 PM EDT 07/20/2025 12:53 PM EDT us Ernestina DEMPSEY LAB BLOOD ORDERABLES Final Resul t Performing Organization Address City/[facility]/ZIP Co de Phone Number [facility] [address] [place] [address], [place] [phone] * (ABNORMAL) Aspartate aminotransferase (07/20/2025 12:53 PM EDT) AST (SGOT) 49(H) 10 - 42 unit/L LAB CHEMISTRY METHOD 07/20/2025 2:24 PM EDT [facility] Blood Venous blood specimen / Unknown Venipuncture / Unknown 07/20/2025 12:53 PM EDT 07/20/2025 12:53 PM EDT us Ernestina DEMPSEY LAB BLOOD ORDERABLES Final Resul t [facility] [address] [place] [address], [place] [phone] * CT Upper Extremity wo Contrast Left (07/19/2025 7:12 AM EDT) Anatomical Region Laterality Modality Upper Extremities, Humerus Left Compu beatrice Tomography 07/27/2025 4:29 PM EDT Impressions 07/27/2025 4:37 PM EDT Severe glenohumeral arthritis. There are opaque loose bodies and there is fluid in the subcoracoid bursa. At least some volume loss of the supraspinatus Preoperative planning. Blueprint protocol was utilized -------- FINAL REPORT -------- Dictated By: Jack Herrera Dictated Date: 07/27/2025 16:29 ET Assigned Physician: Jack Herrera Reviewed and Electronically Signed By: Jack Herrera Signed Date: 07/27/2025 16:37 ET Workstation ID: [id number] Transcribed By: Self Edit Transcribed Date: 07/27/2025 16:29 ET Narrative 07/27/2025 4:37 PM EDT EXAMINATION: CT UPPER EXTREMITY WITHOUT CONTRAST, LEFT SHOULDER CLINICAL INFORMATION: Severe glenohumeral arthritis. Preoperative planning COMPARISON: Portions of previous 09/19/24 TECHNIQUE: Multidetector CT. Examination of the extremity. Examination of the extremity without IV contrast. Reformatting in the coronal and sagittal planes. 3-D postprocessing was performed. Blueprint protocol was not utilized DLP: 1651 mGy-cm Dose optimization was performed including the use of low-dose iterative reconstruction technique with automatic exposure control based on patient size. Type of contrast: None Volume of IV contrast: None Volume of contrast discarded: 0 mL FINDINGS: Digital event marketing manager demonstrates narrowing and sclerosis of the left glenohumeral joint with opaque loose bodies ALIGNMENT: No subluxation or dislocation. ACUTE FRACTURE: No acute fracture. FOCAL LESION: No suspicious focal lesion. PERIOSTEAL: No periosteal reaction. No bone destruction. JOINTS: There is severe narrowing of the glenohumeral joint. There is subchondral sclerosis. There are subchondral cystic or erosive changes. There are proliferative osteophytes. There is narrowing with vacuum phenomena and osteophyte at the AC joint. SOFT TISSUES: There is fluid including the subcoracoid bursa. There are opaque loose bodies in the subcoracoid bursa and posterior and inferior to the glenohumeral joint. There is at least some attenuation of the rotator cuff. I suspect at least some volume loss of the supraspinatus. Motion limits lung detail. No suspicious abnormality. Procedure Note Jack Herrera MD - 07/27/2025 EXAMINATION: CT UPPER EXTREMITY WITHOUT CONTRAST, LEFT SHOULDER CLINICAL INFORMATION: Severe glenohumeral arthritis. Preoperative planning COMPARISON: Portions of previous 09/19/24 TECHNIQUE: Multidetector CT. Examination of the extremity. Examination of the extremity without IV contrast. Reformatting in the coronal and sagittal planes. 3-D postprocessing was performed. Blueprint protocol was not utilized DLP: 1651 mGy-cm Dose optimization was performed including the use of low-dose iterativereconstruction technique with automatic exposure control based on patientsize. Type of contrast: None Volume of IV contrast: None Volume of contrast discarded: 0 mL FINDINGS: Digital event marketing manager demonstrates narrowing and sclerosis of the leftglenohumeral joint with opaque loose bodies ALIGNMENT: No subluxation or dislocation. ACUTE FRACTURE: No acute fracture. FOCAL LESION: No suspicious focal lesion. PERIOSTEAL: No periosteal reaction. No bone destruction. JOINTS: There is severe narrowing of the glenohumeral joint. There issubchondral sclerosis. There are subchondral cystic or erosive changes.There are proliferative osteophytes. There is narrowing with vacuum phenomena and osteophyte at the AC joint. SOFT TISSUES: There is fluid including the subcoracoid bursa. There areopaque loose bodies in the subcoracoid bursa and posterior and inferior tothe glenohumeral joint. There is at least some attenuation of the rotator cuff. I suspect at least some volume loss of the supraspinatus. Motion limits lung detail. No suspicious abnormality. IMPRESSION: Severe glenohumeral arthritis. There are opaque loose bodies and there isfluid in the subcoracoid bursa. At least some volume loss of the supraspinatus Preoperative planning. Blueprint protocol was utilized -------- FINAL REPORT -------- Dictated By: Jack Herrera Dictated Date: 07/27/2025 16:29 ET Assigned Physician: Jack Herrera Reviewed and Electronically Signed By: Jack Herrera Signed Date: 07/27/2025 16:37 ET Workstation ID: [id number] Transcribed By: Self Edit Transcribed Date: 07/27/2025 16:29 ET Clemente Bishop MD IMG CT PROCEDURES Final Result * Hepatitis C antibody (02/01/2025 2:46 PM EDT) [facility] Hepatitis C Antibody Negative Negative LAB CHEMISTRY METHOD 02/01/2025 7:19 PM EDT [facility] Blood Venous blood specimen / Unknown Venipuncture / Unknown 02/01/2025 2:46 PM EDT 02/01/2025 2:46 PM EDT Maximino DEMPSEY LAB BLOOD ORDERABLES Margie l Result [facility] [address] [place] [address], * Abdominal Aortic Aneurysm Screen (04/15/2023) [facility] Abdominal Aortic Aneurysm (AAA) Screening Normal Anatomical Region Laterality Modality Other Historical Provider HEALTH MAINTENANCE Final Result * Colonoscopy (06/22/2018) Colonoscopy Normal Anatomical Region Laterality Modality Other us Historical Provider HEALTH MAINTENANCE Final Result from Last 3 Months or Most Recently Relevant to Health Maintenance Insurance MEDICARE [facility] Advance Directives Documents on File Type Date Recorded Patient Practice Manager Expl anation Power of Surgical Clinical Reviewer 11/28/2024 1:01 PM [facility] Care Teams Landscape And Yardwork Laborer Relationship Specialty Start Date End Date Maximino Hewitt PA [address] [place] [address] PCP - General Internal Medicine 09/05/24
--- OUTSIDE RECORDS SUMMARY | 2025-10-11 12:52 | XMS_ITS ---
Author Name CRISP Organization Unknown Care Team Organization Name Specialty Phone Email Start Date End Da [facility] 06/07/2025
--- NOTE | 2025-10-11 13:02 | A.PHYSOV_ITS ---
Vital Signs 10/11/25 13:03 Height 6 ft 1 in Weight 235 lb BMI 31.0 Intake Visit Reasons: MRI followup Intake Note: Patient is a 69 year old male here for MRI review. Janitorial Services Supervisor Required: No Allergies No Known Allergies Allergy (Verified 10/11/25 13:04) HPI Comments Details: History of Present Illness The patient is a 69 year old male presenting for follow-up of chronic low back pain. He reports a long-standing history of low back pain since childhood, which he describes as a spasm. The pain is localized to his low back without radiation to his legs and often awakens him at night. The patient's symptoms are exacerbated by activity, such as working on his feet, bending forward, and bending backward. He has noted some improvement with reduced activity during the winter, and a prior course of prednisone a few months ago also provided some relief. For pain management, he uses Tylenol as needed and states he tries to avoid taking medications. Patient has failed conservative treatment. The patient has been walking on a treadmill, which seems to help. He has a history of right shoulder arthritis, for which he is scheduled to have a reverse total shoulder replacement in late November. The shoulder issue stems from a dislocation while playing football in high school. I ordered MRI of the lumbar spine and we are reviewing it in person today. Patient reports pain level today of 10. Pain Description - Onset: Patient reports having low back pain since childhood. - Location: Pain is localized to the low back, more on the right side, but spreads across the center and left with extension. - Radiation: He denies any radiation of pain into the legs. - Quality: Describes the pain as a spasm. - Exacerbating Factors: Pain is worsened by doing too much, bending forward, and bending backward. - Relieving Factors: Rest, reduced activity, walking on a treadmill, and a prior course of prednisone have provided some relief. - Interference with Function: Pain awakens him at night and limits his ability to perform certain activities. Results - Imaging: A recent lumbar spine MRI shows varying degrees of arthritis, which is worse in the lower area. - There is moderate stenosis at one level and milder stenosis at others, with no obvious pinched nerve. [facility] Medical History (Updated 09/21/25 @ 11:43 by Karla Alonzo Asya) Varicose veins of both lower extremities SOB (shortness of breath) Rotator cuff arthropathy of left shoulder PND (post-nasal drip) Paroxysmal atrial fibrillation Obstructive sleep apnea Intermittent asthma Exercise-induced asthma ETOH abuse HTN (hypertension) Erectile dysfunction Diverticulosis Detached retina Class 1 obesity Chronic midline low back pain without sciatica Arthritis of left glenohumeral joint Aortic root dilatation Surgical History History of vasectomy Status post right foot surgery History of colonoscopy Family History (Updated 09/21/25 @ 11:46 by EDGAR Perez) Mother Stroke Father Prostate cancer Brother Prostate cancer Social History Alcohol intake: current Alcohol intake frequency: other Comment: social Patient Tobacco Use Status: Former Tobacco user Current occupational status: employed Review of Systems Narrative Review of Systems - Musculoskeletal: Reports chronic low back pain and stiffness, describing the pain as a spasm. - Neurological: Denies radicular pain into the legs. Physical Exam Exam Exam: Physical Exam - Back: Inspection of the back was performed. - Tenderness noted on palpation of the lower back, which the patient localized more to the right. He does have an increase in pain with facet loading. - Lumbar range of motion is noted to be stiff. - Lumbar extension provokes pain across the lower back bilaterally. - Full range of motion bilateral lower extremities. No calf pain or edema. - Sensation is intact. Vital Signs: BMI result Body Mass Index 31.0 Assessment & Plan Assessment & Plan (1) Vertebrogenic low back pain: Code(s): M54.51 - Vertebrogenic low back pain Category: Medical Plan Pain Management - Affect: The pain awakens him at night and he feels he can't do anything when it is severe. - Analgesia: He reports feeling a little better since a course of prednisone a couple of months ago and currently takes Tylenol only when needed. - Activities of Daily Living: His pain is exacerbated by prolonged standing and work, but he finds walking on the treadmill helpful. - Aberrant Drug Related Behaviors: He tries to avoid taking medications and describes himself as not a big pill person. Plan Patient was informed and verbally consented to the use of an ambient scribe for clinic note documentation during this visit. 1. Lumbar Spondylosis With Facet Arthropathy The patient's chronic low back pain is attributed to lumbar facet arthropathy, which is supported by his MRI findings of multilevel arthritis and the physical exam finding of worsening pain with extension. The plan is to proceed with bilateral lumbar facet joint injections at two levels under X-ray guidance. It was explained that this may provide at least 50% pain reduction for 3 to 6 months. Patient consents to bilateral L4-5, L5-S1 facet injection. We will obtain prior authorization for his injection and contact him once we have done so. If the injections provide significant relief, he would be a candidate for a subsequent radiofrequency ablation for longer-term pain control. The patient agreed to this plan, and an order will be placed for the injection pending insurance authorization. He will follow up in three weeks after the procedure to assess the outcome. A list of bodyweight exercises was provided, and the patient was encouraged to continue activity as tolerated, such as treadmill walking. 2. Osteoarthritis Of Right Shoulder The patient is scheduled for a reverse total shoulder arthroplasty in late November for severe right shoulder arthritis. He was advised to consult with his surgeon regarding the planned lumbar facet injections to ensure there is no contraindication or risk of postponing his shoulder surgery. Discussion Notes I reviewed the patient's lumbar MRI, explaining that it shows multilevel arthritis, which is the likely source of his pain, and reassuringly, no obvious pinched nerve. I explained that his worsening pain on leaning back is a classic sign of this type of arthritis. We discussed treatment options, and I recommended bilateral, two-level lumbar facet joint injections. I informed him that the injections could offer over 50% pain relief lasting three to six months and that successful treatment would make him a candidate for a longer-lasting radiofrequency ablation procedure. We discussed the risks of the procedure, including infection, bleeding, and nerve damage, and I explained it would be done under X-ray guidance for safety. The patient consented to proceed. Given his upcoming shoulder replacement in November, I strongly advised him to contact his surgeon to ensure the lumbar injection would not interfere with the surgery. I provided a list of exercises and encouraged him to continue activity but to be mindful of his back even when feeling better. A follow-up appointment will be made for three weeks post-injection. Patient Instructions - We will request authorization from your insurance for cortisone injections in your lower back. - It is very important that you contact your shoulder surgeon's office to inform them you are planning to have these back injections in October. - You need to confirm with the surgeon that this will not cause any problems for your shoulder replacement surgery scheduled in November. - You may continue to use Tylenol as needed for pain. - Continue gentle activity as you can tolerate, such as walking on the treadmill. - You were given a handout with recommended exercises. - Remember to protect your back, even when it feels better. - We will schedule a follow-up visit for you about 3 weeks after your injection. Coding Level of Care Code Est Pt Level 3 (30324) Diagnoses Vertebrogenic low back pain M54.51
[2025-10-11 13:03] VITALS: BMI 31.0
== END 2025-10-11 13:52 | disposition home or self-care (01) ==
LOC: HO.HPHYS 12:48
PROVIDERS: PCP Physician Assistant Medical; Visit Provider Physician Assistant
DX: M54.51 Vertebrogenic low back pain (principal)
CPT/HCPCS: 99213

== ENCOUNTER → 2025-10-11 12:47 | Outpatient (BNVA) | payer MEDICARE, BC, SELFPAY | PROVIDERS: PCP Physician Assistant Medical; Visit Provider Physician Assistant | DX: M54.51 Vertebrogenic low back pain (principal) | CPT/HCPCS: 99212 ==